=== PATIENT | male | born 1990 | race Caucasian/White ===

== ENCOUNTER 2024-04-01 11:50 | Inpatient (IN) | payer SELFPAY ==
[~2024-04-01] VITALS: Ht 180.3 cm; Wt 142.0 kg
[2024-04-01] VITALS (21 sets, daily range): BP systolic 114–170; BP diastolic 66–114
[~2024-04-01 11:50] MED LIST: Aspirin 81 MG Chew PO ONE; Heparin Sodium,Porcine 5,000 UNIT/0.5 ML SDV SC ONE
[2024-04-01] MEDS ORDERED: Morphine Sulfate 4 MG/1 ML Injection IV ONE (12:20)
[2024-04-01] MEDS ORDERED: Ticagrelor 90 MG TABLET PO ONE (12:25)
[2024-04-01] MEDS ORDERED: NS 1,000 ML IV SCH (12:30)
[2024-04-01] MEDS ORDERED: FentaNYL Citrate 50 MCG/ML 2 ML Injection ONE ×2 (12:39→13:17)
[2024-04-01] MEDS ORDERED: NS 1,000 ML IV ONE ×2 (12:40→14:08)
[2024-04-01] MEDS ORDERED: Atropine Sulfate 0.1 MG/ML 10ML SYR ONE (12:40)
[2024-04-01] MEDS ORDERED: Midazolam HCl 1MG / ML 2ML Vial ONE (12:40)
[2024-04-01] MEDS ORDERED: Heparin Sodium 1000 Units/ML 10ML MDV ONE ×2 (12:42→14:08)
[2024-04-01 12:43] LABS: Calcium, Ionized (POC) 1.16 mmol/L (1.10-1.46); Chloride (POC) 103 mmol/L (98-108); Creatinine (POC) 0.9 mg/dL (0.8-1.3); Glucose (ISTAT POC) 120 mg/dL (70-99); Potassium (POC) 3.8 mmol/L (3.5-5.5); Sodium (POC) 137 mmol/L (135-148); Total CO2 (POC) 21 mmol/L (21-32)
[2024-04-01 12:52] LABS: BASOPHILS ABSOLUTE AUTO 0.12 K/mm3 (0.00-0.23); BASOPHILS PERCENT AUTO 1 % (0-2); EOSINOPHILS ABSOLUTE AUTO 0.18 K/mm3 (0.00-0.68); EOSINOPHILS PERCENT AUTO 1 % (0-6); Hematocrit 46.3 % (37.0-53.0); Hemoglobin 16.4 g/dL (13.5-17.5); IMMATURE GRAN ABSOLUTE AUTO 0.05 K/mm3 (0.00-0.10); IMMATURE GRAN PERCENT AUTO 0 % (0-1); LYMPHOCYTES ABSOLUTE AUTO 4.72 K/mm3 (0.84-5.20); LYMPHOCYTES PERCENT AUTO 36 % (21-46); MONOCYTES ABSOLUTE AUTO 0.67 K/mm3 (0.16-1.47); MONOCYTES PERCENT AUTO 5 % (4-13); Mean Corpuscular HGB 31.1 pg (26.0-34.0); Mean Corpuscular HGB Conc 35.4 g/dL (31.5-36.5); Mean Corpuscular Volume 88 fL (80-100); Mean Platelet Volume 9.2 fL (9.1-12.4); NEUTROPHILS ABSOLUTE AUTO 7.35 K/mm3 (1.96-9.15); NEUTROPHILS PERCENT AUTO 56 % (41-73); Platelet Count 376 K/mm3 (150-400); RDW Coefficient Variation 12.5 % (11.7-14.2); RDW Standard Deviation 40.2 fL (35.1-46.3); Red Blood Cell Count 5.28 M/mm3 (4.30-5.90); White Blood Cell Count 13.09 K/mm3 (4.00-11.30)
[2024-04-01] MEDS ORDERED: HydrALAZINE HCl 20 MG / ML 1ML Vial ONE (13:03)
[2024-04-01] MEDS ORDERED: Tirofiban HCL M-Hyd/NS 250 ML IV ONE (13:06)
[2024-04-01] MEDS ORDERED: Tirofiban HCL Monohydrate 3.75 MG/15 ML Vial ONE (13:06)
[2024-04-01 13:19] LABS: International Normalized Ratio 0.95; Prothrombin Time Results 10.2 Sec (9.7-11.5)
[2024-04-01 13:22] LABS: Albumin, Blood 4.1 g/dL (3.4-5.0); Albumin/Globulin Ratio 1.1 (0.8-1.8); Bilirubin, Total 0.7 mg/dL (0.1-1.0); Bun/Creatinine Ratio 12.4 (12.0-20.0); Calcium, Blood 10.6 mg/dL (8.5-10.1); Creatinine, Blood 0.81 mg/dL (0.60-1.20); Globulin, Blood 3.6 g/dL (2.2-4.0); Potassium, Blood 3.7 mmol/L (3.5-5.5); Total Protein, Blood 7.7 g/dL (6.4-8.2)
[2024-04-01 13:34] LABS: CHOL/HDL RATIO 4.4; Cholesterol 173 mg/dL (50-200); HDL Cholesterol 39 mg/dL (>39); LDL/HDL RATIO 1.4; Low Density Lipoprotein Chol 55 mg/dL (0-110); Triglycerides 395 mg/dL (30-140); Very Low Density Lipoprot Chol 79 mg/dL (6-28)
[2024-04-01] MEDS ORDERED: NS 250 ML IV ONE (14:08)
[2024-04-01] MEDS ORDERED: Verapamil HCL 2.5 MG/ML 2ML Injection ONE (14:08)
[2024-04-01] MEDS ORDERED: Nitroglycerin 2 MG/20 ML BTL ONE (14:09)
[2024-04-01] MEDS ORDERED: Enoxaparin 40 MG/0.4 ML SYR SC SCH (15:00)
[2024-04-01] MEDS ORDERED: Magnesium Hydroxide Conc 10 ML UDC PO PRN (15:00)
[2024-04-01] MEDS ORDERED: FLU VACC TS2024-25(6MOS UP)/PF 45 MCG/0.5 ML SYRINGE IM SCH (15:00)
[2024-04-01] MEDS ORDERED: Potassium Chloride 20 MEQ TabCR PO ONE (15:00)
[2024-04-01] MEDS ORDERED: Tirofiban HCL M-Hyd/NS 250 ML IV SCH (15:15)
--- NOTE | 2024-04-01 15:51 | NUR ---
PT ARRIVED TO ICU ROOM 1 VIA GURNEY WITH [employer] STAFF. ALERT AND ORIENTED X 4. SITTING UP IN BED AND INTERACTING WITH STAFF APPROPRIATELY. REPORTS MILD CHEST SORENESS AT "PROBABLY A ONE". DENIES SOB. CONTINOUS CARDIAC MONITORING IN PLACE SHOWING SR WITH HR IN 60'S. BP STABLE. ON RA WITH O2 SATURATIONS > 95%. AGGRASTAT INFUSING TO RAC AT 0.15 MCG/KG/MIN. R RADIAL ACCESS COVERED WITH TR BAND. NO SIGNS OF BLEEDING. TO BEDSIDE FROM WAITING ROOM, UPDATED ON PLAN OF CARE. SEE ADMIT ASSESSMENT FOR FULL DETAILS.
[2024-04-01] MEDS ORDERED: Nicotine 14 MG PATCH TOP SCH (17:15)
--- NOTE | 2024-04-01 18:41 | NUR ---
SHIFT SUMMARY: I HAVE BEEN IN CARE OF THIS PATIENT FOR A BRIEF PERIOD OF TIME. HE HAS NOT HAD ANY COMPLAINT OF PAIN SINCE RETURNING FROM THE [facility]. TR BAND HAS BEEN DEFLATED AND INSERTION SITE BANDAGED. NO BRUISING OR BLEEDING NOTED, SOFT TO THE TOUCH. PATIENT'S BREATHING IS UNLABORED. APPETITIE IS APPROPRIATE. URINATING ADEQUATELY WITH URINAL. SINUS RHYTHM ON MONITORY WITH OCCASIONAL BRADYCARDIA IN THE 50S. MAP >65. PT HAS A THAT HAS BEEN HERE INTERMITTENTLY FOR SUPPORT.
[2024-04-01] MEDS ORDERED: Ticagrelor 90 MG TABLET PO SCH (19:00)
--- NOTE | 2024-04-01 19:39 | NUR ---
ASSUMPTION OF CARE ASSUMED CARE OF PATIENT AT 1900, BEDSIDE SHIFT REPORT RECEIVED FROM [facility] SERVIN. PT RESTING IN BED, ALERT AND ORIENTED. PT ANSWERS QUESTIONS APPROPRIATELY, FOLLOWS DIRECTION WHEN PROMTPED AND IS ABLE TO MAKE HIS NEEDS KNOWN. PT USES CALL LIGHT APPROPRIATELY. PT MOVES EXTREMITIES EQUALLY BILATERALLY. ARM BOARD IN PLACE TO RIGHT WRIST. PT DENIES PAIN AT TIME OF ASSESSMENT. HR 50-60'S SINUS, MAP >65. PT DENIES CP/PRESSURE. PT STATES THAT HIS CHEST IS OCCASIONALLY SORE, NOT PAINFUL, PT DENIES SORENESS AT TIME OF ASSESSMENT. ACCESS SITE TO RIGHT RADIAL, TEGADERM AND ARMBOARD IN PLACE. SITE IS SOFT, NONTENDER, NO HEMATOMA FORMATION NOTED. OLD BLOOD NOTED ON TEGADERM, NO SIGNS OF CURRENT BLEEDING NOTED. PT ON RA, OXYGEN SATURATION >95%. ABDOMEN ROUND, NONTENDER, PT DENIES N/V, BOWEL TONES ACTIVE THROUGHOUT. PT USES URINAL TO VOID. PIV IN PLACE TO RAC SL. BED IN LOWEST POSITION, CALL LIGHT WITHIN REACH, CARE CONTINUES.
[2024-04-01] MEDS ORDERED: Atorvastatin 40 MG Tab PO SCH (21:00)
--- NOTE | 2024-04-02 01:41 | NUR ---
TRANSFER TO PCU REPORT GIVEN TO ROCKET MOTOR MECHANIC. PT TRANSFERED TO PCU VIA WHEELCHAIR. PT ALERT AND ORIENTED ON TRANSFER. PT TRANSFERED WITH ALL PT BELONGINGS. PT TRANSFERED TO PCU BED VIA SBA. VITAL SIGNS REMAINED STABLE THROGHOUT TRANSFER.
--- NOTE | 2024-04-02 01:47 | NUR ---
PT TRXFR TO PCU PT ARRIVED TO PCU AT APPROXIMATELY 0140. PT AOX4 STOOD FROM WHEELCHAIR AND STEPPED TO THE BED. PT DENIES ANY CHEST PAIN OR SOB. PT ATTACHED TO MONITOR. PT REPORTS MILD ANXIETY THAT IS RESOLVING. PT ON RA AND RESTING COMFORTABLY IN BED, CALL LIGHT IN REACH, PT PERSONAL PHONE WITHIN REACH.
[2024-04-02 01:53] VITALS: BP 164/85
[2024-04-02 05:19] LABS: Hematocrit 43.4 % (37.0-53.0); Hemoglobin 15.1 g/dL (13.5-17.5); Mean Corpuscular HGB 31.4 pg (26.0-34.0); Mean Corpuscular HGB Conc 34.8 g/dL (31.5-36.5); Mean Corpuscular Volume 90 fL (80-100); Mean Platelet Volume 9.2 fL (9.1-12.4); Platelet Count 301 K/mm3 (150-400); RDW Coefficient Variation 12.9 % (11.7-14.2); RDW Standard Deviation 42.7 fL (35.1-46.3); Red Blood Cell Count 4.81 M/mm3 (4.30-5.90); White Blood Cell Count 13.62 K/mm3 (4.00-11.30)
[2024-04-02 05:56] LABS: Bun/Creatinine Ratio 16.4 (12.0-20.0); Calcium, Blood 8.8 mg/dL (8.5-10.1); Creatinine, Blood 0.73 mg/dL (0.60-1.20); Potassium, Blood 4.4 mmol/L (3.5-5.5)
[2024-04-02 07:46] VITALS: BP 132/75
[2024-04-02] MEDS ORDERED: Aspirin 81 MG Chew PO SCH ×2 (09:00)
[2024-04-02] MEDS ORDERED: ASPI81CH PO (09:38)
[2024-04-02] MEDS ORDERED: Nicoderm Cq1 EAC1 TOP (09:39)
[2024-04-02] MEDS ORDERED: ATOR80 PO (09:39)
[2024-04-02] MEDS ORDERED: TICA90TA PO (09:39)
[2024-04-02 11:17] VITALS: BP 129/72
[2024-04-02] MEDS ORDERED: LISI5 PO (13:10)
[2024-04-02] MEDS ORDERED: METO25ER PO (13:10)
[2024-04-02 15:29] VITALS: BP 120/75
--- NOTE | 2024-04-02 16:40 | NUR ---
SHIFT SUMMARY PT A&Ox4, CALLS AND COMMUNICATES NEEDS APPROPRIATELY. BP STABLE, SINUS 70's, DENIES CP/PRESSURE. SpO2> 92% RA, DENIES SOB. IND IN ROOM. R RADIAL SITE WNL, ARM BOARD IN PLACE. WAITING FOR REPEAT TROPONIN. NO OTHER EVENTS, WILL REPORT TO ONCOMING RN.
--- NOTE | 2024-04-02 19:04 | NUR ---
DISCHARGE SUMMARY PT OKAY'D TO DISCHARGE BY CARDIOLOGY AFTER TROP CAME BACK LOWER THAN THE PREVIOUS RESULT. SEE PREVIOUS NOTE, NO ACUTE CHANGES IN PT VSS OR MENTATION. DISCHARGE EDUCATION PROVIDED WITH ATE BEDSIDE. PT TAKEN OUT VIA WHEEL CHAIR BY CLINICAL STAFF MEMBER AT APPROXIMATELY 1850.
[2024-04-03] MEDS ORDERED: Lisinopril 5 MG Tab PO SCH (09:00)
[2024-04-03] MEDS ORDERED: Metoprolol Succinate 25 MG TABCR PO SCH (09:00)
== END 2024-04-02 19:00 | disposition home or self-care (01) | DRG 322 ==
LOC: ER 11:50 → ICUE 12:45 → EDBEDREQ 14:25 → ICUE 14:34 → PCU 04-02 01:34
PROVIDERS: Emergency Medicine; Physician Assistant; ADMIT Internal Medicine
PROC: 027034Z Dilation of Coronary Artery, One Artery with Drug-eluting Intraluminal Device, Percutaneous Approach (ICD-10-PCS; principal; 2024-04-01)
PROC: 02C03ZZ Extirpation of Matter from Coronary Artery, One Artery, Percutaneous Approach (ICD-10-PCS; 2024-04-01)
PROC: B241ZZ3 Ultrasonography of Multiple Coronary Arteries, Intravascular (ICD-10-PCS; 2024-04-01)
PROC: B2111ZZ Fluoroscopy of Multiple Coronary Arteries using Low Osmolar Contrast (ICD-10-PCS; 2024-04-01)
PROC: 4A023N7 Measurement of Cardiac Sampling and Pressure, Left Heart, Percutaneous Approach (ICD-10-PCS; 2024-04-01)
DX: I21.19 ST elevation (STEMI) myocardial infarction involving other coronary artery of inferior wall (principal); Z68.41 Body mass index [BMI] 40.0-44.9, adult; E87.6 Hypokalemia; F17.210 Nicotine dependence, cigarettes, uncomplicated; I25.10 Atherosclerotic heart disease of native coronary artery without angina pectoris; E66.01 Morbid (severe) obesity due to excess calories; E78.5 Hyperlipidemia, unspecified; Z71.6 Tobacco abuse counseling; Z79.899 Other long term (current) drug therapy
CPT/HCPCS: 36415; 71045; 76937; 80047; 80048; 80053; 80061; 83036; 83718; 84484; 85014; 85025; 85027; 85347; 85379; 85520; 85610; 85730; 92973; 92978; 93458; 96374; 96375; 99152; 99153; 99285-25; A9270; C1753; C1769; C1874; C1887; C1894; C8929; C9606; J0360; J0461; J1644; J1650; J2250; J2270; J3010; J3246; J7030; J7050; Q9957; Q9967

== ENCOUNTER 2024-04-17 18:10 | Emergency (ER) | payer SELFPAY ==
[~2024-04-17] VITALS: Ht 180.3 cm; Wt 136.1 kg
[~2024-04-17 18:10] MED LIST changes: +ASPI81CH PO; +ATOR80 PO; -Aspirin 81 MG Chew PO ONE; -Heparin Sodium,Porcine 5,000 UNIT/0.5 ML SDV SC ONE; +LISI5 PO; +METO25ER PO; +Nicoderm Cq1 EAC1 TOP; +TICA90TA PO
[2024-04-17] MEDS ORDERED: Ondansetron HCl 2 MG / ML 2ML Vial IV PRN (18:25)
[2024-04-17 18:26] LABS: BASOPHILS PERCENT AUTO 1 % (0-2); EOSINOPHILS ABSOLUTE AUTO 0.15 K/mm3 (0.00-0.68); EOSINOPHILS PERCENT AUTO 1 % (0-6); Hematocrit 42.4 % (37.0-53.0); Hemoglobin 14.9 g/dL (13.5-17.5); IMMATURE GRAN ABSOLUTE AUTO 0.03 K/mm3 (0.00-0.10); IMMATURE GRAN PERCENT AUTO 0 % (0-1); LYMPHOCYTES ABSOLUTE AUTO 4.37 K/mm3 (0.84-5.20); LYMPHOCYTES PERCENT AUTO 36 % (21-46); MONOCYTES ABSOLUTE AUTO 0.47 K/mm3 (0.16-1.47); MONOCYTES PERCENT AUTO 4 % (4-13); Mean Corpuscular HGB 30.8 pg (26.0-34.0); Mean Corpuscular HGB Conc 35.1 g/dL (31.5-36.5); Mean Corpuscular Volume 88 fL (80-100); Mean Platelet Volume 9.4 fL (9.1-12.4); NEUTROPHILS ABSOLUTE AUTO 6.99 K/mm3 (1.96-9.15); NEUTROPHILS PERCENT AUTO 58 % (41-73); Platelet Count 289 K/mm3 (150-400); RDW Standard Deviation 38.9 fL (35.1-46.3); Red Blood Cell Count 4.84 M/mm3 (4.30-5.90); White Blood Cell Count 12.11 K/mm3 (4.00-11.30)
[2024-04-17 18:48] LABS: Albumin, Blood 3.9 g/dL (3.4-5.0); Albumin/Globulin Ratio 1.2 (0.8-1.8); Bun/Creatinine Ratio 13.2 (12.0-20.0); Calcium, Blood 8.8 mg/dL (8.5-10.1); Creatinine, Blood 0.91 mg/dL (0.60-1.20); Globulin, Blood 3.3 g/dL (2.2-4.0); Potassium, Blood 3.9 mmol/L (3.5-5.5); Total Protein, Blood 7.2 g/dL (6.4-8.2)
== END 2024-04-17 20:57 | disposition home or self-care (01) ==
LOC: ER 18:10
PROVIDERS: Emergency Medicine
DX: R00.2 Palpitations (principal); I10 Essential (primary) hypertension; I25.2 Old myocardial infarction; Z86.79 Personal history of other diseases of the circulatory system; Z79.82 Long term (current) use of aspirin; Z79.899 Other long term (current) drug therapy
CPT/HCPCS: 71046; 80053; 83690; 84484; 85025; 93005; 93010; 99285-25

== ENCOUNTER 2024-07-19 10:11 | Emergency (ER) | payer BC ==
[~2024-07-19] VITALS: Ht 170.2 cm; Wt 102.1 kg
[2024-07-19 11:30] LABS: BASOPHILS ABSOLUTE AUTO 0.05 K/mm3 (0.00-0.23); BASOPHILS PERCENT AUTO 1 % (0-2); EOSINOPHILS ABSOLUTE AUTO 0.14 K/mm3 (0.00-0.68); EOSINOPHILS PERCENT AUTO 2 % (0-6); Hematocrit 41.9 % (37.0-53.0); Hemoglobin 14.9 g/dL (13.5-17.5); IMMATURE GRAN ABSOLUTE AUTO 0.01 K/mm3 (0.00-0.10); IMMATURE GRAN PERCENT AUTO 0 % (0-1); LYMPHOCYTES ABSOLUTE AUTO 3.55 K/mm3 (0.84-5.20); LYMPHOCYTES PERCENT AUTO 38 % (21-46); MONOCYTES ABSOLUTE AUTO 0.45 K/mm3 (0.16-1.47); MONOCYTES PERCENT AUTO 5 % (4-13); Mean Corpuscular HGB Conc 35.6 g/dL (31.5-36.5); Mean Corpuscular Volume 87 fL (80-100); Mean Platelet Volume 9.3 fL (9.1-12.4); NEUTROPHILS ABSOLUTE AUTO 5.06 K/mm3 (1.96-9.15); NEUTROPHILS PERCENT AUTO 55 % (41-73); Platelet Count 321 K/mm3 (150-400); RDW Coefficient Variation 12.5 % (11.7-14.2); RDW Standard Deviation 39.7 fL (35.1-46.3); Red Blood Cell Count 4.81 M/mm3 (4.30-5.90); White Blood Cell Count 9.26 K/mm3 (4.00-11.30)
[2024-07-19 12:07] LABS: Albumin, Blood 4.2 g/dL (3.4-5.0); Albumin/Globulin Ratio 1.2 (0.8-1.8); Bilirubin, Total 0.6 mg/dL (0.1-1.0); Bun/Creatinine Ratio 16.9 (12.0-20.0); Calcium, Blood 9.4 mg/dL (8.5-10.1); Creatinine, Blood 0.95 mg/dL (0.60-1.20); Globulin, Blood 3.6 g/dL (2.2-4.0); Total Protein, Blood 7.8 g/dL (6.4-8.2)
== END 2024-07-19 13:47 | disposition home or self-care (01) ==
LOC: ER 10:11
PROVIDERS: Physician Assistant
DX: R07.9 Chest pain, unspecified (principal); I10 Essential (primary) hypertension; I25.2 Old myocardial infarction; F17.210 Nicotine dependence, cigarettes, uncomplicated; Z79.82 Long term (current) use of aspirin; Z79.2 Long term (current) use of antibiotics; Z79.899 Other long term (current) drug therapy
CPT/HCPCS: 71046; 80053; 83690; 84484; 85025; 93005; 93010; 99285-25

== ENCOUNTER 2024-08-31 18:44 | Emergency (ER) | payer BC ==
[~2024-08-31] VITALS: Ht 180.3 cm; Wt 124.7 kg
[2024-08-31 19:26] LABS: BASOPHILS ABSOLUTE AUTO 0.08 K/mm3 (0.00-0.23); BASOPHILS PERCENT AUTO 1 % (0-2); EOSINOPHILS ABSOLUTE AUTO 0.19 K/mm3 (0.00-0.68); EOSINOPHILS PERCENT AUTO 2 % (0-6); Hematocrit 38.9 % (37.0-53.0); Hemoglobin 13.3 g/dL (13.5-17.5); IMMATURE GRAN ABSOLUTE AUTO 0.04 K/mm3 (0.00-0.10); IMMATURE GRAN PERCENT AUTO 0 % (0-1); LYMPHOCYTES ABSOLUTE AUTO 4.02 K/mm3 (0.84-5.20); LYMPHOCYTES PERCENT AUTO 35 % (21-46); MONOCYTES PERCENT AUTO 6 % (4-13); Mean Corpuscular HGB 30.1 pg (26.0-34.0); Mean Corpuscular HGB Conc 34.2 g/dL (31.5-36.5); Mean Corpuscular Volume 88 fL (80-100); NEUTROPHILS ABSOLUTE AUTO 6.61 K/mm3 (1.96-9.15); NEUTROPHILS PERCENT AUTO 57 % (41-73); Platelet Count 352 K/mm3 (150-400); RDW Coefficient Variation 12.9 % (11.7-14.2); RDW Standard Deviation 42.2 fL (35.1-46.3); Red Blood Cell Count 4.42 M/mm3 (4.30-5.90); White Blood Cell Count 11.64 K/mm3 (4.00-11.30)
[2024-08-31 19:41] LABS: Albumin/Globulin Ratio 1.2 (0.8-1.8); Bilirubin, Total 0.5 mg/dL (0.1-1.0); Bun/Creatinine Ratio 12.4 (12.0-20.0); Calcium, Blood 9.2 mg/dL (8.5-10.1); Creatinine, Blood 0.97 mg/dL (0.60-1.20); Globulin, Blood 3.2 g/dL (2.2-4.0); Potassium, Blood 3.8 mmol/L (3.5-5.5); Total Protein, Blood 7.2 g/dL (6.4-8.2)
== END 2024-08-31 22:33 | disposition home or self-care (01) ==
LOC: ER 18:44
PROVIDERS: Student in an Organized Health Care Education/Training Program
DX: R07.89 Other chest pain (principal); I25.2 Old myocardial infarction; Z79.82 Long term (current) use of aspirin; Z79.899 Other long term (current) drug therapy
CPT/HCPCS: 71046; 80053; 83690; 84484; 85025; 93005; 93010; 99285-25

== ENCOUNTER 2024-10-12 14:21 | Emergency (ER) | payer BC ==
[~2024-10-12] VITALS: Ht 180.3 cm; Wt 122.5 kg
[2024-10-12] MEDS ORDERED: FENO48 PO (14:50)
[2024-10-12] MEDS ORDERED: PANT40 PO (14:51)
[2024-10-12] MEDS ORDERED: CLOP75 PO (14:52)
[2024-10-12 15:19] LABS: BASOPHILS ABSOLUTE AUTO 0.05 K/mm3 (0.00-0.23); BASOPHILS PERCENT AUTO 1 % (0-2); EOSINOPHILS ABSOLUTE AUTO 0.14 K/mm3 (0.00-0.68); EOSINOPHILS PERCENT AUTO 1 % (0-6); Hematocrit 39.4 % (37.0-53.0); Hemoglobin 13.2 g/dL (13.5-17.5); IMMATURE GRAN ABSOLUTE AUTO 0.03 K/mm3 (0.00-0.10); IMMATURE GRAN PERCENT AUTO 0 % (0-1); LYMPHOCYTES PERCENT AUTO 25 % (21-46); MONOCYTES ABSOLUTE AUTO 0.44 K/mm3 (0.16-1.47); MONOCYTES PERCENT AUTO 4 % (4-13); Mean Corpuscular HGB 29.9 pg (26.0-34.0); Mean Corpuscular HGB Conc 33.5 g/dL (31.5-36.5); Mean Corpuscular Volume 89 fL (80-100); Mean Platelet Volume 8.9 fL (9.1-12.4); NEUTROPHILS ABSOLUTE AUTO 7.67 K/mm3 (1.96-9.15); NEUTROPHILS PERCENT AUTO 69 % (41-73); Platelet Count 364 K/mm3 (150-400); RDW Coefficient Variation 12.7 % (11.7-14.2); RDW Standard Deviation 41.8 fL (35.1-46.3); Red Blood Cell Count 4.42 M/mm3 (4.30-5.90); White Blood Cell Count 11.03 K/mm3 (4.00-11.30)
[2024-10-12 15:52] LABS: Albumin, Blood 3.9 g/dL (3.4-5.0); Albumin/Globulin Ratio 1.1 (0.8-1.8); Bilirubin, Total 0.4 mg/dL (0.1-1.0); Bun/Creatinine Ratio 11.5 (12.0-20.0); Calcium, Blood 8.9 mg/dL (8.5-10.1); Creatinine, Blood 0.95 mg/dL (0.60-1.20); Globulin, Blood 3.5 g/dL (2.2-4.0); Potassium, Blood 3.8 mmol/L (3.5-5.5); Total Protein, Blood 7.4 g/dL (6.4-8.2)
[2024-10-12] MEDS ORDERED: Mag Hydrox/AL Hydrox/Simeth 30 ML UDC PO ONE (16:50)
[2024-10-12] MEDS ORDERED: Lidocaine 2% Viscous Soln 15 ML UDC PO ONE (16:50)
== END 2024-10-12 20:15 | disposition home or self-care (01) ==
LOC: ER 14:21
PROVIDERS: Emergency Medicine
DX: R07.89 Other chest pain (principal); R42 Dizziness and giddiness; I10 Essential (primary) hypertension; I25.10 Atherosclerotic heart disease of native coronary artery without angina pectoris; F17.210 Nicotine dependence, cigarettes, uncomplicated; Z95.5 Presence of coronary angioplasty implant and graft; I25.2 Old myocardial infarction; Z79.82 Long term (current) use of aspirin; Z79.899 Other long term (current) drug therapy
CPT/HCPCS: 71045; 80053; 84484; 85025; 93005; 93010; 99285-25; A9270

== ENCOUNTER → 2024-12-24 | Outpatient (CLI) | payer BC ==
[~2024-12-24] MED LIST changes: +CLOP75 PO; +FENO48 PO; +PANT40 PO
== END ==
LOC: LAB 16:59 → LAB SHORT 16:59
DX: R31.9 Hematuria, unspecified (principal)
CPT/HCPCS: 87077; 87086; 87186

== ENCOUNTER 2025-01-03 19:34 | Emergency (ER) | payer BC ==
[~2025-01-03] VITALS: Ht 180.3 cm; Wt 120.2 kg
[2025-01-03 19:58] LABS: BASOPHILS ABSOLUTE AUTO 0.05 K/mm3 (0.00-0.23); BASOPHILS PERCENT AUTO 0 % (0-2); EOSINOPHILS ABSOLUTE AUTO 0.20 K/mm3 (0.00-0.68); EOSINOPHILS PERCENT AUTO 1 % (0-6); Hematocrit 34.1 % (37.0-53.0); Hemoglobin 11.5 g/dL (13.5-17.5); IMMATURE GRAN ABSOLUTE AUTO 0.07 K/mm3 (0.00-0.10); IMMATURE GRAN PERCENT AUTO 1 % (0-1); LYMPHOCYTES ABSOLUTE AUTO 3.38 K/mm3 (0.84-5.20); LYMPHOCYTES PERCENT AUTO 24 % (21-46); MONOCYTES ABSOLUTE AUTO 0.59 K/mm3 (0.16-1.47); MONOCYTES PERCENT AUTO 4 % (4-13); Mean Corpuscular HGB Conc 33.7 g/dL (31.5-36.5); Mean Corpuscular Volume 86 fL (80-100); NEUTROPHILS ABSOLUTE AUTO 10.05 K/mm3 (1.96-9.15); NEUTROPHILS PERCENT AUTO 70 % (41-73); NRBC ABSOLUTE 0.00 K/mm3 (0.00-0.02); NRBC Auto 0.0 /100 WBC (0.0-0.2); Platelet Count 463 K/mm3 (150-400); RDW Coefficient Variation 12.6 % (11.7-14.2); RDW Standard Deviation 39.8 fL (35.1-46.3)
[2025-01-03 20:17] LABS: Alanine Aminotransfer (ALT/SGP 25.0 U/L (12-78); Albumin, Blood 3.2 g/dL (3.4-5.0); Albumin/Globulin Ratio 0.7 (0.8-1.8); Anion Gap 6.0 mmol/L (3-11); Aspartate Aminotrans (AST/SGOT 15.0 U/L (12-37); Bilirubin, Total 0.3 mg/dL (0.1-1.0); Blood Urea Nitrogen 14.0 mg/dL (8-24); CO2, Blood 27.0 mmol/L (21-32); Calcium, Blood 9.0 mg/dL (8.5-10.1); Chloride, Blood 105.0 mmol/L (98-108); Creatinine, Blood 0.89 mg/dL (0.60-1.20); Globulin, Blood 4.4 g/dL (2.2-4.0); Glucose, Blood 137.0 mg/dL (70-99); Potassium, Blood 3.7 mmol/L (3.5-5.5); Sodium, Blood 134.0 mmol/L (136-145); Total Protein, Blood 7.6 g/dL (6.4-8.2)
== END 2025-01-04 00:01 | disposition home or self-care (01) ==
LOC: ER 19:34
PROVIDERS: Student in an Organized Health Care Education/Training Program
DX: R07.9 Chest pain, unspecified (principal); I25.10 Atherosclerotic heart disease of native coronary artery without angina pectoris; I25.2 Old myocardial infarction; Z79.82 Long term (current) use of aspirin; Z79.899 Other long term (current) drug therapy
CPT/HCPCS: 71046; 80053; 84484; 85025

== ENCOUNTER 2025-01-08 22:06 | Emergency (ER) | payer BC ==
[~2025-01-08] VITALS: Ht 180.3 cm; Wt 120.2 kg
[2025-01-08 22:51] LABS: BASOPHILS ABSOLUTE AUTO 0.07 K/mm3 (0.00-0.23); BASOPHILS PERCENT AUTO 0 % (0-2); EOSINOPHILS ABSOLUTE AUTO 0.24 K/mm3 (0.00-0.68); EOSINOPHILS PERCENT AUTO 2 % (0-6); Hematocrit 33.0 % (37.0-53.0); Hemoglobin 10.9 g/dL (13.5-17.5); IMMATURE GRAN ABSOLUTE AUTO 0.13 K/mm3 (0.00-0.10); IMMATURE GRAN PERCENT AUTO 1 % (0-1); LYMPHOCYTES ABSOLUTE AUTO 2.77 K/mm3 (0.84-5.20); LYMPHOCYTES PERCENT AUTO 17 % (21-46); MONOCYTES ABSOLUTE AUTO 0.80 K/mm3 (0.16-1.47); MONOCYTES PERCENT AUTO 5 % (4-13); Mean Corpuscular HGB Conc 33.0 g/dL (31.5-36.5); Mean Corpuscular Volume 86 fL (80-100); NEUTROPHILS ABSOLUTE AUTO 12.08 K/mm3 (1.96-9.15); NEUTROPHILS PERCENT AUTO 75 % (41-73); NRBC ABSOLUTE 0.00 K/mm3 (0.00-0.02); NRBC Auto 0.0 /100 WBC (0.0-0.2); Platelet Count 454 K/mm3 (150-400); RDW Coefficient Variation 12.6 % (11.7-14.2); RDW Standard Deviation 39.0 fL (35.1-46.3)
[2025-01-08 23:25] LABS: Alanine Aminotransfer (ALT/SGP 24.0 U/L (12-78); Albumin, Blood 2.9 g/dL (3.4-5.0); Albumin/Globulin Ratio 0.7 (0.8-1.8); Anion Gap 8.0 mmol/L (3-11); Aspartate Aminotrans (AST/SGOT 18.0 U/L (12-37); Bilirubin, Total 0.4 mg/dL (0.1-1.0); Blood Urea Nitrogen 13.0 mg/dL (8-24); CO2, Blood 26.0 mmol/L (21-32); Calcium, Blood 8.3 mg/dL (8.5-10.1); Chloride, Blood 105.0 mmol/L (98-108); Creatinine, Blood 0.81 mg/dL (0.60-1.20); Globulin, Blood 4.4 g/dL (2.2-4.0); Glucose, Blood 99.0 mg/dL (70-99); Potassium, Blood 3.9 mmol/L (3.5-5.5); Sodium, Blood 135.0 mmol/L (136-145); Total Protein, Blood 7.3 g/dL (6.4-8.2)
== END 2025-01-09 01:12 | disposition home or self-care (01) ==
LOC: ER 22:06
PROVIDERS: Physician Assistant
DX: R07.2 Precordial pain (principal); I10 Essential (primary) hypertension; Z79.899 Other long term (current) drug therapy; Z79.82 Long term (current) use of aspirin
CPT/HCPCS: 71046; 80053; 84484; 85025; 93005; 93010; 99285-25

== ENCOUNTER 2025-01-30 07:11 | Emergency (ER) | payer BC ==
[~2025-01-30] VITALS: Ht 180.3 cm; Wt 118.2 kg
[2025-01-30 08:47] LABS: BASOPHILS ABSOLUTE AUTO 0.06 K/mm3 (0.00-0.23); BASOPHILS PERCENT AUTO 0 % (0-2); EOSINOPHILS ABSOLUTE AUTO 0.11 K/mm3 (0.00-0.68); EOSINOPHILS PERCENT AUTO 1 % (0-6); Hematocrit 33.0 % (37.0-53.0); Hemoglobin 10.8 g/dL (13.5-17.5); IMMATURE GRAN ABSOLUTE AUTO 0.11 K/mm3 (0.00-0.10); IMMATURE GRAN PERCENT AUTO 1 % (0-1); LYMPHOCYTES ABSOLUTE AUTO 2.12 K/mm3 (0.84-5.20); LYMPHOCYTES PERCENT AUTO 13 % (21-46); MONOCYTES ABSOLUTE AUTO 0.78 K/mm3 (0.16-1.47); MONOCYTES PERCENT AUTO 5 % (4-13); Mean Corpuscular HGB Conc 32.7 g/dL (31.5-36.5); Mean Corpuscular Volume 86 fL (80-100); NEUTROPHILS ABSOLUTE AUTO 13.11 K/mm3 (1.96-9.15); NEUTROPHILS PERCENT AUTO 80 % (41-73); NRBC ABSOLUTE 0.00 K/mm3 (0.00-0.02); NRBC Auto 0.0 /100 WBC (0.0-0.2); Platelet Count 480 K/mm3 (150-400); RDW Coefficient Variation 13.1 % (11.7-14.2); RDW Standard Deviation 41.1 fL (35.1-46.3)
[2025-01-30 09:04] LABS: Alanine Aminotransfer (ALT/SGP 21.0 U/L (12-78); Albumin, Blood 3.1 g/dL (3.4-5.0); Albumin/Globulin Ratio 0.7 (0.8-1.8); Anion Gap 9.0 mmol/L (3-11); Aspartate Aminotrans (AST/SGOT 12.0 U/L (12-37); Bilirubin, Total 0.5 mg/dL (0.1-1.0); Blood Urea Nitrogen 14.0 mg/dL (8-24); CO2, Blood 25.0 mmol/L (21-32); Calcium, Blood 8.8 mg/dL (8.5-10.1); Chloride, Blood 105.0 mmol/L (98-108); Creatinine, Blood 0.76 mg/dL (0.60-1.20); Globulin, Blood 4.5 g/dL (2.2-4.0); Glucose, Blood 104.0 mg/dL (70-99); Potassium, Blood 4.0 mmol/L (3.5-5.5); Sodium, Blood 135.0 mmol/L (136-145); Total Protein, Blood 7.6 g/dL (6.4-8.2)
[2025-01-30] MEDS ORDERED: Percocet 5-3251 EACH PO (12:24)
[2025-01-30] MEDS ORDERED: ONDA4ODT MM (12:24)
[2025-01-30] MEDS ORDERED: OxyCODONE 5 mg/Acetamin 325 mg TABLET PO ONE (12:25)
[2025-01-30 13:09] LABS: Lactate Dehydrogenase (Ld),Bld 245.0 U/L (100-240); Uric Acid, Blood 4.4 mg/dL (3.5-7.2)
== END 2025-01-30 13:26 | disposition home or self-care (01) ==
LOC: ER 07:11
PROVIDERS: Student in an Organized Health Care Education/Training Program
DX: R22.1 Localized swelling, mass and lump, neck (principal); R22.2 Localized swelling, mass and lump, trunk; M89.9 Disorder of bone, unspecified; D72.829 Elevated white blood cell count, unspecified; D75.839 Thrombocytosis, unspecified; D64.9 Anemia, unspecified; I10 Essential (primary) hypertension; I25.10 Atherosclerotic heart disease of native coronary artery without angina pectoris; I25.2 Old myocardial infarction; Z95.5 Presence of coronary angioplasty implant and graft; Z79.02 Long term (current) use of antithrombotics/antiplatelets; Z79.82 Long term (current) use of aspirin; Z79.899 Other long term (current) drug therapy
CPT/HCPCS: 70450; 70491; 71046; 71260; 74177; 80053; 83615; 84550; 85025; 93005; 93010; 99284-25; A9270; Q9967

== ENCOUNTER 2025-02-16 06:18 | Day surgery (SDC) | payer BC ==
[~2025-02-16] VITALS: Ht 195.6 cm; Wt 116.2 kg
[~2025-02-16 06:18] MED LIST changes: +FENO145 PO; -FENO48 PO; -LISI5 PO; +ONDA4ODT MM; +PANT20 PO; -PANT40 PO; +Percocet 5-3251 EACH PO; +Prinivil10 MG PO
[2025-02-16] MEDS ORDERED: Lidocaine 1%-Epineph 1:200000 30 ML SDV ONE (07:10)
[2025-02-16] MEDS ORDERED: Midazolam HCl 1MG / ML 2ML Vial ONE (07:12)
[2025-02-16] MEDS ORDERED: FentaNYL Citrate 50 MCG/ML 2 ML Injection ONE ×2 (07:12→08:03)
[2025-02-16] MEDS ORDERED: Rocuronium Bromide 10 MG/ML 5ML Injection IV ONE (07:13)
[2025-02-16] MEDS ORDERED: Dexamethasone Sod Phos 10 MG/ML 1ML VIAL ONE (07:13)
[2025-02-16] MEDS ORDERED: Sugammadex Sodium 200 MG/2ML SDV (100 MG/ML) ONE (08:00)
--- NOTE | 2025-02-16 08:44 | NUR ---
02/16/25 0844 Carmenza Agrawal REPORT RECEIVED FROM RN AND SALIMA. ORAL AIRWAY IN PLACE UPON ARRIVAL TO PACU. PT ASLEEP. HOB 30 DEGREES. DRESSING CDI. O2 100% ON 6L NRB. SCOPE PATCH NOTED BEHIND LEFT EAR. IV PATENT
--- NOTE | 2025-02-16 09:07 | NUR ---
02/16/25 0907 Carmenza Agrawal REDNESS NOTED ON SKIN WHERE ADHESIVE HAD BEEN PLACED FROM EKG LEADS ON CHEST AND ABDOMEN , GROUNDING PAD ON LEG AND AROUND NECK WHERE DRAPES WERE PLACED.
[2025-03-13] MEDS ORDERED: NITR.4SL SL (08:52)
== END 2025-02-16 10:13 | disposition home or self-care (01) ==
LOC: ORSCSDS 06:18
PROVIDERS: Otolaryngology
PROC: 07B10ZX Excision of Right Neck Lymphatic, Open Approach, Diagnostic (ICD-10-PCS; principal; 2025-02-16 07:30)
DX: R59.0 Localized enlarged lymph nodes (principal); R73.03 Prediabetes; E66.9 Obesity, unspecified; Z68.35 Body mass index [BMI] 35.0-35.9, adult; Z79.02 Long term (current) use of antithrombotics/antiplatelets; Z79.82 Long term (current) use of aspirin; I25.2 Old myocardial infarction; Z79.899 Other long term (current) drug therapy
CPT/HCPCS: 88184; 88185; 88305; 88323; 88341; 88342; 88365; A9270; J1100; J2250; J2704; J3010; J7120

== ENCOUNTER 2025-03-14 09:01 | Day surgery (SDC) | payer BC ==
[~2025-03-14] VITALS: Ht 180.3 cm; Wt 113.7 kg
[2025-03-14] VITALS (11 sets, daily range): BP systolic 95–125; BP diastolic 54–75
[~2025-03-14 09:01] MED LIST changes: +NITR.4SL SL
[2025-03-14] MEDS ORDERED: CeFAZolin Sodium 2,000 MG in NS 100 ML IV SCH (09:20)
--- NOTE | 2025-03-14 09:53 | NUR ---
History, Chart, Medications and Allergies reviewed before start of procedure. Patient confirms NPO status and agrees with scheduled surgery. Patient reports completing Chlorhexadine shower X2 prior to admission to hospital. Surgical site prepped with 2% Chlorhexidine cloth wipe. Patient States Post-Procedure ride home has been arranged.
[2025-03-14] MEDS ORDERED: FentaNYL Citrate 50 MCG/ML 2 ML Injection ONE (10:46)
[2025-03-14] MEDS ORDERED: Ondansetron HCl 2 MG / ML 2ML Vial IV PRN (11:25)
[2025-03-14] MEDS ORDERED: Metoclopramide HCl 5MG / ML 2ML Vial IV PRN (11:25)
[2025-03-14] MEDS ORDERED: FentaNYL Citrate 50 MCG/ML 2 ML Injection IV PRN ×3 (11:25→11:30)
[2025-03-14] MEDS ORDERED: HYDROmorphone HCl/Pf 1MG SYR IV PRN (11:25)
[2025-03-14] MEDS ORDERED: Ondansetron HCl 2 MG / ML 2ML Vial ONE (11:33)
[2025-03-14] MEDS ORDERED: Dexamethasone Sod Phos 10 MG/ML 1ML VIAL ONE (11:33)
--- NOTE | 2025-03-14 12:26 | NUR ---
[facility]IST[facility] FROM INTERVENTIONAL RADIOLOGY. DR. SUZIE WHATLEY ARRIVED TO OR, DONNED GOWN AND GLOVES, AND ASSISTED DR. DIAZ WITH THE MEDIPORT INSERTION.
[2025-03-14] MEDS ORDERED: OxyCODONE 5 mg/Acetamin 325 mg TABLET PO PRN (13:05)
--- NOTE | 2025-03-14 13:15 | NUR ---
RECEIVED CALL FROM RADIOLOGY S/P MEDIPORT PLACEMENT XRAY. PER DR MCNULTY, MEDIPORT IN GOOD PLACEMENT.
--- NOTE | 2025-03-14 13:58 | NUR ---
Patient up to Ambulate independently. Gait steady. Discharge instructions reviewed with patient. Patient verbalizes understanding. Copy given to patient to take home. Dressing to procedure site X2 areas clean, dry, intact with no visible drainage, swelling, erythema or bruising noted. Discharged via wheelchair to private car for ride home.
== END 2025-03-14 13:57 | disposition home or self-care (01) ==
LOC: ORSCMMR 09:01 → ORD 09:45 → ORSCMMR 10:30
PROVIDERS: Surgery
PROC: 0JH60WZ Insertion of Totally Implantable Vascular Access Device into Chest Subcutaneous Tissue and Fascia, Open Approach (ICD-10-PCS; principal; 2025-03-14 10:30)
DX: C81.11 Nodular sclerosis Hodgkin lymphoma, lymph nodes of head, face, and neck (principal); I10 Essential (primary) hypertension; I25.2 Old myocardial infarction; M10.9 Gout, unspecified; E66.812 Obesity, class 2; Z68.35 Body mass index [BMI] 35.0-35.9, adult; Z79.82 Long term (current) use of aspirin; Z79.02 Long term (current) use of antithrombotics/antiplatelets; Z79.899 Other long term (current) drug therapy; Z87.891 Personal history of nicotine dependence
CPT/HCPCS: 77001; A9270; C1769; C1788; C1894; J0690; J1100; J1642; J2405; J2704; J3010; J7120

== ENCOUNTER 2025-03-17 16:14 | Emergency (ER) | payer BC ==
[~2025-03-17] VITALS: Ht 180.3 cm; Wt 111.1 kg
[2025-03-17] MEDS ORDERED: Prochlorperazine Edisylate 10 mg Vial IV ONE (16:30)
[2025-03-17] MEDS ORDERED: NS 1,000 ML IV SCH ×2 (16:30→18:10)
[2025-03-17 17:09] LABS: BASOPHILS ABSOLUTE AUTO 0.04 K/mm3 (0.00-0.23); BASOPHILS PERCENT AUTO 0 % (0-2); EOSINOPHILS ABSOLUTE AUTO 0.02 K/mm3 (0.00-0.68); EOSINOPHILS PERCENT AUTO 0 % (0-6); Hematocrit 33.2 % (37.0-53.0); Hemoglobin 10.7 g/dL (13.5-17.5); IMMATURE GRAN ABSOLUTE AUTO 0.08 K/mm3 (0.00-0.10); IMMATURE GRAN PERCENT AUTO 0 % (0-1); LYMPHOCYTES ABSOLUTE AUTO 1.16 K/mm3 (0.84-5.20); LYMPHOCYTES PERCENT AUTO 6 % (21-46); MONOCYTES ABSOLUTE AUTO 0.86 K/mm3 (0.16-1.47); MONOCYTES PERCENT AUTO 5 % (4-13); Mean Corpuscular HGB Conc 32.2 g/dL (31.5-36.5); Mean Corpuscular Volume 81 fL (80-100); NEUTROPHILS ABSOLUTE AUTO 16.14 K/mm3 (1.96-9.15); NEUTROPHILS PERCENT AUTO 88 % (41-73); NRBC ABSOLUTE 0.00 K/mm3 (0.00-0.02); NRBC Auto 0.0 /100 WBC (0.0-0.2); Platelet Count 389 K/mm3 (150-400); RDW Coefficient Variation 13.6 % (11.7-14.2); RDW Standard Deviation 39.8 fL (35.1-46.3)
[2025-03-17 17:57] LABS: Alanine Aminotransfer (ALT/SGP 41.0 U/L (12-78); Albumin, Blood 2.9 g/dL (3.4-5.0); Albumin/Globulin Ratio 0.7 (0.8-1.8); Anion Gap 10.0 mmol/L (3-11); Aspartate Aminotrans (AST/SGOT 21.0 U/L (12-37); Bilirubin, Total 0.5 mg/dL (0.1-1.0); Blood Urea Nitrogen 18.0 mg/dL (8-24); CO2, Blood 23.0 mmol/L (21-32); Calcium, Blood 9.1 mg/dL (8.5-10.1); Chloride, Blood 105.0 mmol/L (98-108); Creatinine, Blood 0.67 mg/dL (0.60-1.20); Globulin, Blood 4.2 g/dL (2.2-4.0); Glucose, Blood 120.0 mg/dL (70-99); Potassium, Blood 3.4 mmol/L (3.5-5.5); Sodium, Blood 135.0 mmol/L (136-145); Total Protein, Blood 7.1 g/dL (6.4-8.2)
[2025-03-17] MEDS ORDERED: PROM25 PO (19:15)
== END 2025-03-17 19:23 | disposition home or self-care (01) ==
LOC: ER 16:14
PROVIDERS: Emergency Medicine
DX: R11.2 Nausea with vomiting, unspecified (principal); T45.1X5A Adverse effect of antineoplastic and immunosuppressive drugs, initial encounter; I10 Essential (primary) hypertension; Z79.899 Other long term (current) drug therapy; Z79.82 Long term (current) use of aspirin
CPT/HCPCS: 80053; 83690; 85025; 93005; 93010; 96361; 96374; 99284-25; J0780; J7030

== ENCOUNTER 2025-04-14 14:30 | Emergency (ER) | payer OTHER ==
[~2025-04-14] VITALS: Ht 180.3 cm; Wt 115.7 kg
[~2025-04-14 14:30] MED LIST changes: +PROM25 PO
[2025-04-14 15:04] LABS: BASOPHILS ABSOLUTE AUTO 0.06 K/mm3 (0.00-0.23); BASOPHILS PERCENT AUTO 1 % (0-2); EOSINOPHILS ABSOLUTE AUTO 0.05 K/mm3 (0.00-0.68); EOSINOPHILS PERCENT AUTO 1 % (0-6); Hematocrit 37.2 % (37.0-53.0); Hemoglobin 11.8 g/dL (13.5-17.5); IMMATURE GRAN ABSOLUTE AUTO 0.01 K/mm3 (0.00-0.10); IMMATURE GRAN PERCENT AUTO 0 % (0-1); LYMPHOCYTES ABSOLUTE AUTO 2.58 K/mm3 (0.84-5.20); LYMPHOCYTES PERCENT AUTO 49 % (21-46); MONOCYTES ABSOLUTE AUTO 0.56 K/mm3 (0.16-1.47); MONOCYTES PERCENT AUTO 11 % (4-13); Mean Corpuscular HGB Conc 31.7 g/dL (31.5-36.5); Mean Corpuscular Volume 85 fL (80-100); NEUTROPHILS ABSOLUTE AUTO 2.00 K/mm3 (1.96-9.15); NEUTROPHILS PERCENT AUTO 38 % (41-73); NRBC ABSOLUTE 0.00 K/mm3 (0.00-0.02); NRBC Auto 0.0 /100 WBC (0.0-0.2); Platelet Count 217 K/mm3 (150-400); RDW Coefficient Variation 18.4 % (11.7-14.2); RDW Standard Deviation 57.1 fL (35.1-46.3)
[2025-04-14 15:30] LABS: Alanine Aminotransfer (ALT/SGP 38.0 U/L (12-78); Albumin, Blood 3.9 g/dL (3.4-5.0); Albumin/Globulin Ratio 1.3 (0.8-1.8); Anion Gap 7.0 mmol/L (3-11); Aspartate Aminotrans (AST/SGOT 19.0 U/L (12-37); Bilirubin, Total 0.5 mg/dL (0.1-1.0); Blood Urea Nitrogen 13.0 mg/dL (8-24); CO2, Blood 27.0 mmol/L (21-32); Calcium, Blood 9.1 mg/dL (8.5-10.1); Chloride, Blood 108.0 mmol/L (98-108); Creatinine, Blood 0.83 mg/dL (0.60-1.20); Globulin, Blood 3.1 g/dL (2.2-4.0); Glucose, Blood 86.0 mg/dL (70-99); Potassium, Blood 3.3 mmol/L (3.5-5.5); Sodium, Blood 139.0 mmol/L (136-145); Total Protein, Blood 7.0 g/dL (6.4-8.2)
[2025-04-14] MEDS ORDERED: Potassium Chloride 10 Meq Tablet SA PO ONE (15:40)
[2025-04-14] MEDS ORDERED: Lidocaine 2% Viscous Soln 15 ML UDC PO ONE (16:10)
[2025-04-14] MEDS ORDERED: PANT20 PO (17:19)
== END 2025-04-14 18:43 | disposition home or self-care (01) ==
LOC: ER 14:30
PROVIDERS: Student in an Organized Health Care Education/Training Program
DX: K21.00 Gastro-esophageal reflux disease with esophagitis, without bleeding (principal); E87.6 Hypokalemia; I10 Essential (primary) hypertension; Z79.82 Long term (current) use of aspirin; Z79.02 Long term (current) use of antithrombotics/antiplatelets; Z79.899 Other long term (current) drug therapy
CPT/HCPCS: 71046; 80053; 84484; 85025; 93005; 93010; 99285-25; A9270

== ENCOUNTER 2025-05-24 13:41 | Emergency (ER) | payer OTHER ==
[~2025-05-24] VITALS: Ht 180.3 cm; Wt 124.7 kg
[2025-05-24] MEDS ORDERED: Ondansetron HCl 2 MG / ML 2ML Vial IV PRN (14:10)
[2025-05-24 14:41] LABS: BASOPHILS ABSOLUTE AUTO 0.09 K/mm3 (0.00-0.23); BASOPHILS PERCENT AUTO 1 % (0-2); EOSINOPHILS ABSOLUTE AUTO 0.12 K/mm3 (0.00-0.68); EOSINOPHILS PERCENT AUTO 1 % (0-6); Hematocrit 41.2 % (37.0-53.0); Hemoglobin 14.0 g/dL (13.5-17.5); IMMATURE GRAN ABSOLUTE AUTO 0.08 K/mm3 (0.00-0.10); IMMATURE GRAN PERCENT AUTO 1 % (0-1); LYMPHOCYTES ABSOLUTE AUTO 2.97 K/mm3 (0.84-5.20); LYMPHOCYTES PERCENT AUTO 31 % (21-46); MONOCYTES ABSOLUTE AUTO 0.57 K/mm3 (0.16-1.47); MONOCYTES PERCENT AUTO 6 % (4-13); Mean Corpuscular HGB Conc 34.0 g/dL (31.5-36.5); Mean Corpuscular Volume 83 fL (80-100); NEUTROPHILS ABSOLUTE AUTO 5.88 K/mm3 (1.96-9.15); NEUTROPHILS PERCENT AUTO 61 % (41-73); NRBC ABSOLUTE 0.00 K/mm3 (0.00-0.02); NRBC Auto 0.0 /100 WBC (0.0-0.2); Platelet Count 310 K/mm3 (150-400); RDW Coefficient Variation 17.2 % (11.7-14.2); RDW Standard Deviation 51.9 fL (35.1-46.3)
[2025-05-24 15:07] LABS: Alanine Aminotransfer (ALT/SGP 37.0 U/L (12-78); Albumin, Blood 4.3 g/dL (3.4-5.0); Albumin/Globulin Ratio 1.3 (0.8-1.8); Anion Gap 11.0 mmol/L (3-11); Aspartate Aminotrans (AST/SGOT 26.0 U/L (12-37); Bilirubin, Total 0.5 mg/dL (0.1-1.0); Blood Urea Nitrogen 12.0 mg/dL (8-24); CO2, Blood 24.0 mmol/L (21-32); Calcium, Blood 9.2 mg/dL (8.5-10.1); Chloride, Blood 107.0 mmol/L (98-108); Creatinine, Blood 0.75 mg/dL (0.60-1.20); Globulin, Blood 3.2 g/dL (2.2-4.0); Glucose, Blood 98.0 mg/dL (70-99); Potassium, Blood 3.8 mmol/L (3.5-5.5); Sodium, Blood 138.0 mmol/L (136-145); Total Protein, Blood 7.5 g/dL (6.4-8.2)
== END 2025-05-24 19:25 | disposition home or self-care (01) ==
LOC: ER 13:41
PROVIDERS: Student in an Organized Health Care Education/Training Program
DX: F41.0 Panic disorder [episodic paroxysmal anxiety] (principal); I10 Essential (primary) hypertension; Z87.891 Personal history of nicotine dependence
CPT/HCPCS: 36415; 71046; 80053; 83690; 84484; 85025; 93005; 93010; 99284-25